=== PATIENT | female | born 1980 | race Caucasian/White ===

== ENCOUNTER 2021-10-20 03:41 | Emergency (ER) | payer BC ==
[2021-10-20] MEDS ORDERED: predniSONE 20 MG TAB ONE (04:58)
[2021-10-20] MEDS ORDERED: guaiFENesin/Codeine Phosphate 100 mg/10 mg 5 ml UD Cup ONE (04:58)
== END 2021-10-20 06:22 | disposition home or self-care (01) ==
LOC: MADERS 03:41
DX: J45.909 Unspecified asthma, uncomplicated (principal)
CPT/HCPCS: 71045; J7512; J7620